=== PATIENT | female | born 1960 | race Caucasian/White ===

== ENCOUNTER 2021-12-06 07:07 | Day surgery (SDC) | payer OTHER ==
[2021-12-06] MEDS ORDERED: LACTATED RINGERS 1,000 ML IV ONE ×2 (07:16→09:21)
--- NOTE | 2021-12-06 07:53 | ANESTHESIA ---
Pre-Anesthesia VS, & Labs - Diagnosis Hx of colon polyps - Procedure colonoscopy Vital Signs: Temp Pulse Resp BP Pulse Ox 36.9 C 72 16 136/71 H 96 12/06/21 07:20 12/06/21 07:20 12/06/21 07:20 12/06/21 07:20 12/06/21 07:20 Height: 5 ft 1 in Weight (kg): 51 kg Body Mass Index: 21.2 BMI Classification: Healthy weight - NPO >8 hours - Is Patient ?: No - Lab Results Lab results reviewed: Yes Home Medications and Allergies Home Medications: Ambulatory Orders Atenolol [Tenormin] 100 mg PO DAILY 12/05/21 Chlorthalidone 25 mg PO DAILY 12/05/21 Lisinopril [Zestril] 5 mg PO DAILY 12/05/21 Potassium Chloride [Klor-Con] 20 meq PO DAILY 12/05/21 Atenolol [Tenormin] 100 mg PO DAILY 12/05/21 Chlorthalidone 25 mg PO DAILY 12/05/21 Lisinopril [Zestril] 5 mg PO DAILY 12/05/21 Potassium Chloride [Klor-Con] 20 meq PO DAILY 12/05/21 Allergies/Adverse Reactions: Allergies Allergy/AdvReac Type Severity Reaction Status Date / Time No Known Drug Allergies Allergy Verified 12/05/21 13:02 Anes History & Medical History - Anesthetic History Anesthesia Complications: reports: No previous complications Family history of Anesthesia Complications: Denies Family history of Malignant Hyperthermia: Denies - Medical History Cardiovascular: reports: Hypertension Pulmonary: reports: None Gastrointestinal: reports: Colon polyps Urinary: reports: None Musculoskeletal: reports: None Endocrine/Autoimmune: reports: None Skin: reports: None - Surgical History General: reports: Appendectomy, Colonoscopy Gynecologic: reports: Tubal ligation Exam General: Alert, Oriented x3, Cooperative, No acute distress Dental: WNL Mouth Openin Fingerbreadth Neck Mobility: Normal Mallampati classification: II Plan Anesthesia Type: General, Total IV Consent for Procedure(s) Verified and Reviewed: Yes Code Status: Attempt Resuscitation ASA classification: 2-Mild systemic disease Is this case an emergency?: No
[2021-12-06] MEDS ORDERED: PROPOFOL 500 MG/50 ML 500 MG/50 ML VIAL ONE (08:41)
[2021-12-06 09:37] VITALS: BP 142/60
[2021-12-06] MEDS ORDERED: ONDANSETRON 4 MG/2 ML VIAL ONE (09:51)
--- NOTE | 2021-12-06 10:50 | ANESTHESIA POST OP EVALUATION ---
Anesthesia Post Eval - Post Anesthesia Eval Vitals: Last Vital Signs Temp 36.4 C L 12/06/21 09:36 Pulse 58 L 12/06/21 09:36 Resp 14 12/06/21 09:36 BP 142/60 H 12/06/21 09:36 Pulse Ox 99 12/06/21 09:36 CV Function Including HR & BP: Stable Pain Control: Satisfactory Nausea & Vomiting: Negative Mental Status: Baseline Respiratory Status: Airway Patent Hydration Status: Satisfactory Anesthesia Complications: None
== END 2021-12-06 07:08 | disposition home or self-care (01) ==
LOC: SDS 07:07
PROVIDERS: ATTEND Surgery
DX: Z12.11 Encounter for screening for malignant neoplasm of colon (principal); K57.30 Diverticulosis of large intestine without perforation or abscess without bleeding; K64.8 Other hemorrhoids; K64.4 Residual hemorrhoidal skin tags; Z86.010 Personal history of colon polyps; R06.83 Snoring
CPT/HCPCS: 45378; J7120